=== PATIENT | female | born 1995 | race Caucasian/White ===

== ENCOUNTER 2022-05-30 16:13 | Emergency (ER) | payer BC ==
[2022-05-30 16:29] VITALS: BP 132/89; PULSE 81; O2SAT 99
[2022-05-30 18:05] LABS: Appearance Cloudy (Clear); Bacteria Rare /HPF (None Seen); Bilirubin Negative (Negative); Blood Moderate (Negative); Epithelial Cells Few /HPF (None Seen); Glucose, Urine Negative (Negative); Hyaline Casts NONE SEEN /LPF (0-2); Ketones 40 (Negative); Leukocyte Esterase Moderate (Negative); Nitrite Negative (Negative); Protein,Urine Dip Negative (Negative); Urobilinogen 0.2 mg/dL (0.2)
[2022-05-30 18:06] LABS: ADD URINE CULTURE? ORDERED SEPARATELY (NO)
--- NOTE | 2022-05-30 19:16 | XRAY ---
Indication: Spotting. Two-dimensional transabdominal early OB ultrasound performed. Comparison: None Single intrauterine gestational sac with presence of a single pole and yolk sac. Mean crown-rump length measures 1.07 cm corresponding to 7 weeks 1 day. heart rate 119 BPM. No abnormal subchorionic fluid. Left ovary sonographically unremarkable. Right ovary not visualized. No suspicious adnexal mass or free fluid. Impression: Single viable intrauterine measuring 7 weeks 1 day. Expected date confinement is January 15, 2023. No acute findings. Comment: Preliminary report was given.
[2022-05-30 19:25] LABS: Absolute Neutrophil Ct (ANC) 6.09 x10^3/uL (1.4-6.9); BASOPHIL % 0.6 % (0.0-0.4); Basophil (Absolute #) 0.05 x10^3/uL (0-0.4); Eosinophil % 1.4 % (0.00-5.0); Eosinophil (Absolute #) 0.13 x10^3/uL (0-0.5); Hematocrit 38.1 % (35-47); Hemoglobin 12.6 g/dL (12.0-16.0); IMMATURE GRAN # 0.02 x10^3u/L (0.00-0.03); IMMATURE GRAN % 0.2 % (0.00-0.4); Lymphocyte (Absolute #) 2.07 x10^3/uL (1.0-4.6); Lymphocytes % 22.8 % (24.0-44.0); Mean Cell Volume 94.5 fL (78-100); Mean Corpuscular Hemoglobin 31.3 pg (26-32); Mean Corpuscular Hgb Concent. 33.1 g/dL (32-36); Mean Platelet Volume 9.1 fL (7.5-11.0); Monocytes % 7.7 % (0.0-12.0); Neutrophil % 67.3 % (36.0-66.0); Platelet Count 328 x10^3/uL (150-450); Red Blood Count 4.03 x10^6/uL (4.1-5.4); Red Cell Distribution Width 12.5 % (11.5-14.0); White Blood Count 9.1 x10^3/uL (4.0-10.5)
[2022-05-30 19:42] LABS: ALBUMIN 4.4 g/dL (3.5-5.0); ALKALINE PHOSPHATASE 60 U/L (38-126); ANION GAP 10.9 MEQ/L (5-15); BLOOD UREA NITROGEN 8 mg/dL (7-17); CHLORIDE 104 mmol/L (98-107); Calcium 9.4 mg/dL (8.4-10.2); Carbon Dioxide 27 mmol/L (22-30); Creatinine 1 0.67 mg/dL (0.52-1.04); EST GLOMERULAR FILTRATION RATE > 60.0 ML/MIN; Glucose 75 mg/dL (74-106); LIPASE 120 U/L (23-300); Potassium 3.2 mmol/L (3.5-5.1); SGOT/AST 28 U/L (14-36); SGPT/ALT 26 U/L (0-35); SODIUM 138 mmol/L (137-145); Total Protein 7.8 g/dL (6.3-8.2)
--- NOTE | 2022-05-30 19:44 | ERPHSYRPT ---
- History of Present Illness Time Seen by Provider: 05/30/22 19:36 Source: patient, family Exam Limitations: no limitations Patient Subjective Stated Complaint: PT HERE FOR VAGINAL BLEEDING WITH Triage Nursing Assessment: PT HERE FOR VAGINAL BLEEDING WITH , SHE STATES SHE HAS BEEN SPOTTING SINCE, SHE STATES BLOOD ONLY WHEN SHE WIPES. PT WALKED IN , RESP EASY, SKIN W/D/P Physician History: Hx confirmed independent interview with , discussed and ordered HCG quant, UA, CBC, CMP, and US and discussed results with pt and and need for f/u with OB this week. abd nontender without peritoneal signs. No dizziness. US was [id number] IUP and yold sack without fluid or other findings. Timing/Duration: day(s) Activites at Onset: none Quality: cramping Onset Location: other (mild cramping only ) Pain Radiation: none Severity of Pain-Max: mild Severity of Pain-Current: mild Prior abdominal problems: none Sexual intercourse history: non-contributory Modifying Factors: Improves With: nothing Associated Symptoms: , other (vaginal bleeding resolved) Allergies/Adverse Reactions: No Known Drug Allergies Allergy (Unverified 05/30/22 16:29) Home Medications: Comb No.42/Folic Acid [Prena1 Chew Tablet] 1 ea DAILY 05/30/22 [History] Hx Tetanus, Diphtheria Vaccination/Date Given: No Hx Influenza Vaccination/Date Given: Yes Hx Pneumococcal Vaccination/Date Given: No Travel Risk - International Travel Have you traveled outside of the country in past 3 weeks: No - Coronavirus Screening Are you exhibiting any of the following symptoms?: No Close contact with a COVID-19 positive Pt in past 14-21 Days: No - Vaccine Status Have you recieved a Covid-19 vaccination: Yes Restaurant Maintenance Technician: [employer] - Vaccination Dates Date of 2cond Vaccination (if applicable): 2020 - Review of Systems Constitutional: No Fever, No Chills Eyes: No Symptoms Ears, Nose, & Throat: No Symptoms Respiratory: No Cough, No Dyspnea Cardiac: No Chest Pain, No Edema, No Syncope Abdominal/Gastrointestinal: Other (cramping mild), No Abdominal Pain, No Nausea, No Vomiting, No Diarrhea Genitourinary Symptoms: Vaginal Bleeding, No Dysuria Musculoskeletal: No Back Pain, No Neck Pain Skin: No Rash Neurological: No Dizziness, No Focal Weakness, No Sensory Changes Psychological: No Symptoms Endocrine: No Symptoms Hematologic/Lymphatic: No Symptoms Immunological/Allergic: No Symptoms All Other Systems: Reviewed and Negative - Past Medical History Pertinent Past Medical History: No - Past Surgical History Past Surgical History: Yes Gastrointestinal: Appendectomy Musculoskeletal: Orthopedic Surgery Female Surgical History: Dilation & Curettage - Social History Smoking Status: Never smoker Exposure to second hand smoke: No Drug Use: none Patient Lives Alone: No - Female History Hx Last Menstrual Period: APR 05 Hx Now: Yes Gestational Age: ? - Nursing Vital Signs Nursing Vital Signs: Initial Vital Signs Temperature 97.1 F 05/30/22 16:28 Pulse Rate 81 05/30/22 16:28 Respiratory Rate 18 05/30/22 16:28 Blood Pressure 132/89 05/30/22 16:28 O2 Sat by Pulse Oximetry 99 05/30/22 16:28 Pain Scale Pain Intensity 0 - Physical Exam General Appearance: no apparent distress, alert Eye Exam: PERRL/EOMI, eyes nml inspection Ears, Nose, Throat Exam: normal ENT inspection, TMs normal, pharynx normal, moist mucous membranes Neck Exam: normal inspection, non-tender, supple, full range of motion Respiratory Exam: normal breath sounds, lungs clear, No respiratory distress Cardiovascular Exam: regular rate/rhythm, normal heart sounds, normal peripheral pulses Gastrointestinal/Abdomen Exam: soft, No tenderness, No distention, No mass, No guarding Pelvic Exam: deferred Rectal Exam: deferred Back Exam: normal inspection, normal range of motion, No CVA tenderness, No vertebral tenderness Extremity Exam: normal inspection, normal range of motion, pelvis stable Neurologic Exam: alert, oriented x 3, cooperative, 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, normal mood/affect, sensation nml, No motor deficits Skin Exam: normal color, warm, dry Lymphatic Exam: No adenopathy SpO2: 99 - Course Nursing assessment & vital signs reviewed: Yes - Radiology Ultrasound Exam Pelvis Ultrasound: tele radiology report, IUP Ordered Tests: Active Orders 24 hr Category Date Time Status OB <14 WKS 1ST GESTATION [US] Stat Exams 05/30/22 18:05 Completed CBC W DIFF Stat Lab 05/30/22 19:23 Completed CMP Stat Lab 05/30/22 19:23 Completed CULTURE,URINE Stat Lab 05/30/22 17:56 Received HCG, Quantitative (Inhouse) Stat Lab 05/30/22 19:23 Completed LIPASE Stat Lab 05/30/22 19:23 Completed Lactic Acid Stat Lab 05/30/22 19:20 Completed UA W/RFX UR CULTURE Stat Lab 05/30/22 17:56 Completed Lab/Rad Data: Laboratory Result Diagrams 05/30/22 19:23 05/30/22 19:23 Laboratory Results 05/30/22 05/30/22 05/30/22 Range/Units 19:23 19:23 19:23 WBC 9.1 (4.0-10.5) x10^3/uL RBC 4.03 L (4.1-5.4) x10^6/uL Hgb 12.6 (12.0-16.0) g/dL Hct 38.1 (35-47) % MCV 94.5 (78-100) fL MCH 31.3 (26-32) pg MCHC 33.1 (32-36) g/dL RDW 12.5 (11.5-14.0) % Plt Count 328 (150-450) x10^3/uL MPV 9.1 (7.5-11.0) fL Gran % 67.3 H (36.0-66.0) % Immature Gran % (Auto) 0.2 (0.00-0.4) % Nucleat RBC Rel Count 0.0 (0.00-0.1) % Eos # (Auto) 0.13 (0-0.5) x10^3/uL Immature Gran # (Auto) 0.02 (0.00-0.03) x10^3u/L Absolute Lymphs (auto) 2.07 (1.0-4.6) x10^3/uL Absolute Monos (auto) 0.70 (0.0-1.3) x10^3/uL Absolute Nucleated RBC 0.00 (0.00-0.01) x10^3u/L Lymphocytes % 22.8 L (24.0-44.0) % Monocytes % 7.7 (0.0-12.0) % Eosinophils % 1.4 (0.00-5.0) % Basophils % 0.6 (0.0-0.4) % Absolute Granulocytes 6.09 (1.4-6.9) x10^3/uL Basophils # 0.05 (0-0.4) x10^3/uL Sodium 138 (137-145) mmol/L Potassium 3.2 L (3.5-5.1) mmol/L Chloride 104 (98-107) mmol/L Carbon Dioxide 27 (22-30) mmol/L Anion Gap 10.9 (5-15) MEQ/L BUN 8 (7-17) mg/dL Creatinine 0.67 (0.52-1.04) mg/dL Estimated GFR > 60.0 ML/MIN Glucose 75 (74-106) mg/dL Lactic Acid (0.4-2.0) Calcium 9.4 (8.4-10.2) mg/dL Total Bilirubin 0.40 (0.2-1.3) mg/dL AST 28 (14-36) U/L ALT 26 (0-35) U/L Alkaline Phosphatase 60 (38-126) U/L Serum Total Protein 7.8 (6.3-8.2) g/dL Albumin 4.4 (3.5-5.0) g/dL Lipase 120 (23-300) U/L Beta HCG, Quant 98477 mIU/ml Urine Color (Yellow) Urine Appearance (Clear) Urine pH (4.6-8.0) Ur Specific Harleigh (1.005-1.030) Urine Protein (Negative) Urine Glucose (UA) (Negative) mg/dL Urine Ketones (Negative) Urine Blood (Negative) Urine Nitrite (Negative) Urine Bilirubin (Negative) Urine Urobilinogen (0.2) mg/dL Ur Leukocyte Esterase (Negative) U Hyaline Cast (Auto) (0-2) /LPF Urine Microscopic RBC (0-5) /HPF Urine Microscopic WBC (0-5) /HPF Ur Epithelial Cells (None Seen) /HPF Urine Bacteria (None Seen) /HPF Urine Culture Reflexed (NO) 05/30/22 05/30/22 Range/Units 19:20 17:56 WBC (4.0-10.5) x10^3/uL RBC (4.1-5.4) x10^6/uL Hgb (12.0-16.0) g/dL Hct (35-47) % MCV (78-100) fL MCH (26-32) pg MCHC (32-36) g/dL RDW (11.5-14.0) % Plt Count (150-450) x10^3/uL MPV (7.5-11.0) fL Gran % (36.0-66.0) % Immature Gran % (Auto) (0.00-0.4) % Nucleat RBC Rel Count (0.00-0.1) % Eos # (Auto) (0-0.5) x10^3/uL Immature Gran # (Auto) (0.00-0.03) x10^3u/L Absolute Lymphs (auto) (1.0-4.6) x10^3/uL Absolute Monos (auto) (0.0-1.3) x10^3/uL Absolute Nucleated RBC (0.00-0.01) x10^3u/L Lymphocytes % (24.0-44.0) % Monocytes % (0.0-12.0) % Eosinophils % (0.00-5.0) % Basophils % (0.0-0.4) % Absolute Granulocytes (1.4-6.9) x10^3/uL Basophils # (0-0.4) x10^3/uL Sodium (137-145) mmol/L Potassium (3.5-5.1) mmol/L Chloride (98-107) mmol/L Carbon Dioxide (22-30) mmol/L Anion Gap (5-15) MEQ/L BUN (7-17) mg/dL Creatinine (0.52-1.04) mg/dL Estimated GFR ML/MIN Glucose (74-106) mg/dL Lactic Acid 0.5 (0.4-2.0) Calcium (8.4-10.2) mg/dL Total Bilirubin (0.2-1.3) mg/dL AST (14-36) U/L ALT (0-35) U/L Alkaline Phosphatase (38-126) U/L Serum Total Protein (6.3-8.2) g/dL Albumin (3.5-5.0) g/dL Lipase (23-300) U/L Beta HCG, Quant mIU/ml Urine Color Yellow (Yellow) Urine Appearance Cloudy A (Clear) Urine pH 6.0 (4.6-8.0) Ur Specific Harleigh 1.020 (1.005-1.030) Urine Protein Negative (Negative) Urine Glucose (UA) Negative (Negative) mg/dL Urine Ketones 40 A (Negative) Urine Blood Moderate A (Negative) Urine Nitrite Negative (Negative) Urine Bilirubin Negative (Negative) Urine Urobilinogen 0.2 (0.2) mg/dL Ur Leukocyte Esterase Moderate A (Negative) U Hyaline Cast (Auto) NONE SEEN (0-2) /LPF Urine Microscopic RBC 3-5 (0-5) /HPF Urine Microscopic WBC 3-5 (0-5) /HPF Ur Epithelial Cells Few (None Seen) /HPF Urine Bacteria Rare A (None Seen) /HPF Urine Culture Reflexed ORDERED SEPARATELY (NO) - Progress Progress: improved, re-examined Air Movement: good Progress Note: 05/30/22 21:34 discussed results with pt and and that this may be threatened miscarriage and should be on pelvic rest and no standing lifting until cleared back by her OB. They voice their understanding. Advised of test results and need to recheck UA and K. Blood Culture(s) Obtained: No Antibiotics given: No Counseled pt/family regarding: lab results, diagnosis, need for follow-up, rad results Medical Desision Making - Independent Historian Additional History obtained from: Spouse - Discussion of managment Reviewed:: Test results, Need for additional workup Agreed on:: Treatment plan, need for follow-up - Departure Departure Disposition: Home Clinical Impression: Threatened miscarriage in early Condition: Good Critical Care Time: No Referrals: DAVID BURROUGHS [employer] [facility]ACHINE [Primary Care Provider] - Follow up/PCP as directed Instructions: Threatened Miscarriage (DC), Bleeding in Early (DC) Additional Instructions: recheck your potassium and urine with your Dr. See your OB as planned. Return meantime of further bleeding or pain, or concerns. The copies of these labs have to be given from our medical records department but are available by your request there .
[2022-05-30] MEDS ORDERED: Klor Con PO ONE ×2 (21:32→21:39)
== END 2022-05-30 21:48 | disposition home or self-care (01) ==
LOC: ED 16:13
DX: O20.0 Threatened abortion (principal); Z3A.01 Less than 8 weeks gestation of pregnancy
CPT/HCPCS: 36415; 76801; 80053; 81001; 83605; 83690; 84702; 85025; 87086; 99282; A9270-GY